=== PATIENT | male | born 1990 | race Caucasian/White ===

== ENCOUNTER 2017-01-29 13:30 | Emergency (ER) | payer SELFPAY ==
[~2017-01-29] VITALS: Ht 152.4 cm; Wt 10.0 kg
[2017-01-29 13:35] VITALS: Ht 152.4 cm; Wt 10.0 kg
[2017-01-29] MEDS ORDERED: IPRATROPIUM (NEB) 0.5 MG/2.5 ML AMP NEB STA (14:02)
[2017-01-29] MEDS ORDERED: ALBUTEROL 0.083% (NEB) 2.5 MG/3 ML AMP NEB STA (14:02)
[2017-01-29] MEDS ORDERED: predniSONE 20 MG TAB PO STA (14:02)
[2017-01-29] MEDS ORDERED: ALBU8.5H3 INH (14:08)
[2017-01-29] MEDS ORDERED: PRED20TA PO (14:08)
--- NOTE | 2017-01-29 14:19 | ERD ---
ER Documentation Chief Complaint Date/Time DATE: 01/29/17 TIME: 14:17 Chief Complaint off inhalers x few days, whezzing now HPI This is a 26-year-old male with history of asthma is complaining of wheezing today. The patient is out of his inhaler. He is here with his girlfriend who is insisting he had a breathing treatment however the patient does not want a breathing treatment and just wants an inhaler and some prednisone and go home. He says he is not short of breath no cough no fever no chest pain ROS All systems reviewed and are negative except as per history of present illness. Medications Home Meds Active Scripts Prednisone* (Prednisone*) 20 Mg Tab, 60 MG PO DAILY for 5 Days, TAB Prov:ANDRES HAWLEY DO 01/29/17 Albuterol Sulfate* (Proair HFA*) 8.5 Gm Hfa.aer.ad, 2 PUFF INH Q4, #1 INHALER Prov:ANDRES HAWLEY DO 01/29/17 PMhx/Soc History of Surgery: Yes (NOSE) Anesthesia Reaction: No Hx Neurological Disorder: No Hx Respiratory Disorders: Yes (ASTHMA) Hx Cardiac Disorders: No Hx Psychiatric Problems: No Hx Miscellaneous Medical Probl: No Hx Alcohol Use: Yes Hx Substance Use: Yes Hx Tobacco Use: Yes (3 PKS/DAY) Smoking Status: Never smoker FmHx Family History: No coronary disease Physical Exam Vitals Vital Signs Date Time Temp Pulse Resp B/P Pulse Ox O2 Delivery O2 Flow Rate FiO2 01/29/17 13:35 98.1 82 20 140/89 99 Physical Exam Const: Well-developed, well-nourished Head: Atraumatic, normocephalic Eyes: Normal Conjunctiva, PERRLA, EOMI, normal sclera, no nystagmus ENT: Normal External Ears, Nose and Mouth, moist mucus membranes. Neck: Full range of motion. No meningismus, no lymphadenopathy. Resp: [No increased work of breathing, there is expiratory wheezes but good air movement.. The patient is not short of breath Cardio: Regular rate and rhythm, no murmurs, S1 S2 present Abd: Soft, non tender x 4, non distended. Normal bowel sounds, no guarding or rebound, no pulsitile abdominal masses or bruits Skin: No petechiae or rashes, no ecchymosis , no maculopapular rash Back: No midline or flank tenderness Ext: No cyanosis, or edema, FROM x 4, normal inspection, neurovascularly intact x 4 Neur: Awake and alert, STR 5/5 x 4, sensation intact x 4, no focal findings, cerebellum intact Psych: Normal Mood and Affect Results 24 hrs Current Medications Medications (Trade) Dose Ordered Sig/Nico Route PRN Reason Start Time Stop Time Status Last Admin Dose Admin Albuterol (Proventil 0.083% (Neb)) 7.5 mg ONCE STAT NEB 01/29/17 14:02 01/29/17 14:04 DC Ipratropium [place] (Atrovent 0.02% (Neb)) 1.5 mg ONCE STAT NEB 01/29/17 14:02 01/29/17 14:04 DC Prednisone (Prednisone) 60 mg ONCE STAT PO 01/29/17 14:02 01/29/17 14:04 DC Procedures/MDM Patient initially agreed to have a breathing treatment. The treatment was ordered and RT came into the room. At that time the patient again refused not to have a breathing treatment and just once his prednisone prescription and inhaler prescription and leave Departure Diagnosis: Primary Impression: Asthma attack Condition: Stable Patient Instructions: Asthma, Acute (Adult) ANDRES HAWLEY DO Jan 29, 2017 14:18
== END 2017-01-29 15:04 | disposition home or self-care (01) ==
LOC: FTE 13:30
DX: J45.901 Unspecified asthma with (acute) exacerbation (principal); F17.210 Nicotine dependence, cigarettes, uncomplicated
CPT/HCPCS: 94664; 99284; J7512